=== PATIENT | male | born 1965 | race Caucasian/White ===

== ENCOUNTER 2017-06-18 06:45 | Inpatient (IN) | payer MEDICAID ==
[~2017-06-18] VITALS: Ht 165.1 cm; Wt 78.0 kg
[~2017-06-18 06:45] MED LIST: ACETAMINOPHEN325 MG PO; CLARITIN 10 MG10 MG PO; COREG25 MG PO; FERREX 150 PLUS1 CAP PO; FOLIC ACID1 MG PO; FUROSEMIDE40 MG PO; IBUPROFEN600 MG PO; LISINOPRIL10 MG PO; OMEPRAZOLE40 MG PO; PLAVIX75 MG PO; POTASSIUM CHLO10 ME1 PO; ZANTAC150 MG PO; ZOCOR40 MG PO
[2017-06-18] MEDS ORDERED: LIPITOR40 MG PO (08:39)
[2017-06-18] MEDS ORDERED: ULTRAM50 MG PO (08:39)
[2017-06-18 08:44] VITALS: BP 109/59; BMI 28.6
[2017-06-18 09:40] LABS: HEMATOCRIT 35.8 % (42.0-54.0); HEMOGLOBIN 11.8 g/dL (13.5-17.5); MCH 31.1 pg (26.0-34.0); MCV 94.5 fL (80.0-100.0); RBC 3.79 10x6/uL (4.20-6.10); RDW 12.7 % (11.5-14.5); WBC 4.7 10x3/uL (4.8-10.8)
[2017-06-18 09:46] LABS: ANION GAP 13.9 mmol/L (8-16); CARBON DIOXIDE 21.8 mmol/L (21.0-32.0); CREATININE - SERUM 1.1 mg/dL (0.6-1.3); POTASSIUM - SERUM 4.7 mmol/L (3.5-5.1)
[2017-06-18 17:42] VITALS: BP 137/76
--- NOTE | 2017-06-18 17:45 | NUR ---
TO ROOM 2222 FROM PACU. DRESSING MIDLINE CLEAN, DRY AND INTACT. LONI LMQ MINIMAL DRAINAGE. PATTERSON TO GRAVITY WITH CLEAR YELLOW URINE IN BAG. SCD'S IN PLACE. IVF AND PAIN MEDS INITIATED.ORIENTATION TO ROOM WITH GUARD WHO IS AT BEDSIDE.CALL LIGHT IN REACH
[2017-06-18 18:57] VITALS: BP 137/76; BMI 28.6
--- NOTE | 2017-06-18 20:00 | NUR ---
ASSESSMENT PER FLOWSHEET. MONITORING VITAL SIGNS, DRESSING TO ABDOMEN C/D/I WITH LONI DRAIN PATENT AND COMPRESSED. SMALL AMOUNT SEROUS DRAINAGE NOTED. IV PATENT RT ARM OF NS AT 100CC'S/HR SITE CLEAR. MAINTENANCE SUPERINTENDENT OF DILAUDID IN USE WITH SETTINGS AT 0.2MG Q10MIN WITH NO L/O. PATTERSON TO BS DRAINAGE WITH AYO COLORED URINE. O2 ON 4L/M PRT NC. NO DISTRESS HOB UP 30 DEGREES. HEAD COUNSELOR AT BEDSIDE. PT SHACKLED TO LOWER PORTIONOF BED. SR UP X2 CALL LIGHT WITHIN REACH.PT IS NPO.
--- NOTE | 2017-06-18 22:00 | NUR ---
MEDS GIVEN PER MAR. NO CHANGES IN ASSESSMENT.
[2017-06-18 23:58] VITALS: BP 127/84
--- NOTE | 2017-06-19 | NUR ---
PT STATES THAT THE SHRIMP HEADER IS NOT RELIEVING HIS PAIN. RE CHECKED PT'S SETTINGS THEY ARE CORRECT. ACCORDING TO MD'S ORDERS. WAITED WITH PATIENT TO SEE IF GREEN MED LIGHT CAME ON. AND IT DID AND WAS PRESSED FOR PAIN MED DELIVERED.
[2017-06-19 02:33] VITALS: BP 131/90
--- NOTE | 2017-06-19 03:00 | NUR ---
EYES CLOSED RESPIRATIONS WITH EASE AND UNLABORED. VITAL SIGNS STABLED.
[2017-06-19 05:14] LABS: BASOPHILS 0.1 % (0-2); EOSINOPHILS 0 % (0-7); HEMATOCRIT 37.8 % (42.0-54.0); IMMATURE GRANULOCYTES 0.3 % (0-5); LYMPHOCYTES 3.8 % (15-50); MCH 30.4 pg (26.0-34.0); MCHC 31.7 g/dL (31.0-37.0); MCV 95.7 fL (80.0-100.0); MEAN PLATELET VOLUME 11.1 fL (7.4-10.4); MONOCYTES 7.9 % (2-11); NEUTROPHILS 87.9 % (40-80); RBC 3.95 10x6/uL (4.20-6.10)
[2017-06-19 05:22] LABS: PLATELET COUNT 257 10x3/uL (130-400); WBC 12.8 10x3/uL (4.8-10.8)
[2017-06-19 05:54] LABS: ALBUMIN 3.6 g/dL (3.4-5.0); ANION GAP 19.2 mmol/L (8-16); BILIRUBIN - TOTAL 0.34 mg/dL (0.2-1.3); CALCIUM 8.3 mg/dL (8.5-10.1); CREATININE - SERUM 1.2 mg/dL (0.6-1.3); PHOSPHOROUS 6.1 mg/dL (2.5-4.9); POTASSIUM - SERUM 5.2 mmol/L (3.5-5.1); PROTEIN - SERUM 6.8 g/dL (6.4-8.2)
[2017-06-19 06:30] VITALS: BP 115/69
--- NOTE | 2017-06-19 07:15 | NUR ---
REPORT RECEIVED FROM SHIRRING MACHINE OPERATOR AUTOMATIC NURSE. CALL LIGHT IN REACH.
[2017-06-19 08:08] VITALS: BP 116/72
--- NOTE | 2017-06-19 09:07 | NUR ---
ASSESSMENT COMPLETED. SCDs TO BLE. STATES A LITTLE BIT OF GAS. ANTHROPOLOGY INSTRUCTOR IN ROOM. CALL LIGHT IN REACH. WILL CONTINUE WITH PLAN OF CARE.
--- NOTE | 2017-06-19 11:35 | NUR ---
TYLENOL IVPB ADMINISTERED PER ORDER. INCENTIVE SPIROMETER GIVEN TO PATIENT AND EXPLAINED USE WITH RETURN DEMONSTRATION. NO OTHER NEEDS VOICED. GUARD IN ROOM. CALL LIGHT IN REACH.
[2017-06-19 12:22] VITALS: BP 111/67
--- NOTE | 2017-06-19 12:34 | NUR ---
O2 WEANED TO 2L PER NC. STILL 95% AT THIS TIME. CALL LIGHT IN REACH.
--- NOTE | 2017-06-19 14:59 | NUR ---
REQUESTING ALBUTEROL INHALER FOR SHORTNESS OF BREATH. WILL ASK DR. KOEHLER FOR NEW ORDER.
[2017-06-19 16:01] VITALS: BP 127/78
--- NOTE | 2017-06-19 16:45 | NUR ---
DR. KOEHLER IN ROOM TO SEE PATIENT.
--- NOTE | 2017-06-19 17:38 | NUR ---
ICE GIVEN TO PATIENT. PEPCID 40 MG SIVP. DOCTOR OF NAPRAPATHIC MEDICINE CHANGED. HELD TYLENOL BECAUSE PATIENT HAS EXCEEDED DAILY AMOUNT. CALL LIGHT IN REACH.
--- NOTE | 2017-06-19 18:29 | NUR ---
PT RESTING WITH EYES SHUT, EASILY AROUSED. NO SIGNS OF ACUTE DISTRESS, FAMILY AT BEDSIDE.
--- NOTE | 2017-06-19 19:00 | NUR ---
REPORT RECEIVED AND CARE OF PT ASSUMED. PT LYING IN LOW OW[place]'S POSITION WATCHING TV. IV IN RIGHT WRIST PATENT WITH NS INFUSING AT 100 ML / HR. MANAGER OF CUSTOMER BILLING / DILAUDID IN USE FOR PAIN CONTROL. PATTERSON CATHETER DRAINING TO GRAVITY WITH YELLOW URINE IN COLLECTION BAG. DRESSING ON ABDOMEN CLEAN AND DRY. LONI DRAIN COMPRESSED WITH BLOODY DRAINAGE IN COLLECTION BULB. WILL MONITOR FOR NEEDS. GEAR MILLING MACHINE SET UP OPERATOR IS AT BEDSIDE.
[2017-06-19 20:00] VITALS: BP 144/78
--- NOTE | 2017-06-19 20:00 | NUR ---
PT ARRIVED ON UNIT VIA WHEELCHAIR ESCORTED BY OP NURSE. VITALS STABLE. PRBC'S INFUSING AT 125 ML / HR. ORIENTED TO ROOM AND CALL LIGHT.
--- NOTE | 2017-06-19 20:25 | NUR ---
HS MEDICAITONS GIVEN. WILL CONTINUE TO MONITOR FOR NEEDS.
[2017-06-20 00:43] VITALS: BP 130/76
[2017-06-20 04:00] VITALS: BP 133/82
--- NOTE | 2017-06-20 05:20 | NUR ---
NEW VIAL OF DILAUDID PLACED IN FOREST ENGINEER. WILL CONTINUE TO MONITOR FOR NEEDS.
--- NOTE | 2017-06-20 08:03 | NUR ---
PT AOX4 RESP EVEN AND NONLABORED PT DENIES NEEDS AT THIS TIME IV TO RIGHT WRIST PATENT AND INTACT AT THIS TIME SRX2 BED AT LOWEST SETTING CALL LIGHT WITHIN REACH WILL CONTINUE TO MONITOR
[2017-06-20 08:23] VITALS: BP 135/88
[2017-06-20 10:51] VITALS: Ht 165.1 cm; Wt 78.0 kg
[2017-06-20 12:34] VITALS: BP 126/78
[2017-06-20 16:29] VITALS: BP 128/89
--- NOTE | 2017-06-20 19:00 | NUR ---
REPORT RECEIVED AND CARE OF PT ASSUMED. PT LYING IN SEMI OWUSU'S POSITION WATCHING TV. IV RIGHT WRIST PATENT WITH NS INFUSING AT 100 ML / HR. PATTERSON CATHETER DRAINING TO GRAVITY WITH YELLOW URINE IN COLLECTION BAG. DRESSING ON ABDOMEN CLEAN AND DRY. LONI DRAIN COMPRESSED WITH BLOODY DRAINAGE IN COLLECTION BULB. WILL MONITOR FOR NEEDS. EDUCATION PROFESSIONAL AT BEDSIDE.
[2017-06-20 20:00] VITALS: BP 141/86
--- NOTE | 2017-06-20 23:26 | NUR ---
NEW VIAL OF DILAUDID PLACED IN GLASS ENAMEL MIXER. WILL CONTINUE TO MONITOR FOR NEEDS. CALL LIGHT WITHIN REACH.
[2017-06-21] VITALS: BP 124/102
--- NOTE | 2017-06-21 03:00 | NUR ---
PT RESTING QUIETLY, EYES CLOSED. RESP EVEN, UNLABORED. NO DISTRESS NOTED. CONTINUE AUTOMATION QTP TESTER'S PLAN OF CARE.
[2017-06-21 04:00] VITALS: BP 147/96
[2017-06-21 08:40] VITALS: BP 137/88
[2017-06-21 12:11] VITALS: BP 139/81
[2017-06-21 15:44] VITALS: BP 152/95
--- NOTE | 2017-06-21 16:43 | NUR ---
16 FR NG TUBE PLACED IN RIGHT NARE X1 ATTEMPT RECEIVING 300ML OF GREEN THIN LIQUID BILE. PT TOLERATED WITH LITTLE DISCOMFORT AT THIS TIME
--- NOTE | 2017-06-21 18:10 | NUR ---
BICARB LEVEL OF 19 CALLED TO HE STATED THATS FINE
[2017-06-21 21:25] VITALS: BP 147/83
[2017-06-22 00:27] VITALS: BP 140/88
--- NOTE | 2017-06-22 02:40 | NUR ---
PATIENT SLEEPING INTERMITTENTLY, GUARD AT BEDSIDE. PATIENT SHACKELED FROM THE LEFT ANKLE TO THE BED. NO NEEDS NOTED AT THIS TIME.
[2017-06-22 05:53] VITALS: BP 149/86
[2017-06-22 06:14] LABS: BASOPHILS 0.3 % (0-2); EOSINOPHILS 6.8 % (0-7); HEMATOCRIT 30.9 % (42.0-54.0); IMMATURE GRANULOCYTES 0.3 % (0-5); LYMPHOCYTES 20.9 % (15-50); MCH 30.7 pg (26.0-34.0); MCHC 32.4 g/dL (31.0-37.0); MCV 94.8 fL (80.0-100.0); MEAN PLATELET VOLUME 10.1 fL (7.4-10.4); MONOCYTES 16.8 % (2-11); NEUTROPHILS 54.9 % (40-80); RBC 3.26 10x6/uL (4.20-6.10); RDW 12.8 % (11.5-14.5); WBC 3.4 10x3/uL (4.8-10.8)
[2017-06-22 06:16] LABS: PLATELET COUNT 187 10x3/uL (130-400)
[2017-06-22 06:40] LABS: ALBUMIN 2.7 g/dL (3.4-5.0); ALKALINE PHOSPHATASE 37 U/L (46-116); ALT (SGPT) 19 U/L (10-68); CALC OSMOLALITY 292 mosm/kg (275-300); CALCIUM 8.3 mg/dL (8.5-10.1); CARBON DIOXIDE 20.5 mmol/L (21.0-32.0); CHLORIDE - SERUM 112 mmol/L (98-107); CREATININE - SERUM 0.8 mg/dL (0.6-1.3); GLUCOSE 104 mg/dL (74-106); PHOSPHOROUS 3.4 mg/dL (2.5-4.9); POTASSIUM - SERUM 3.7 mmol/L (3.5-5.1); PRO BNP 2266 pg/mL (0-125); PROTEIN - SERUM 5.4 g/dL (6.4-8.2); SODIUM 146 mmol/L (136-145); UREA NITROGEN 18 mg/dL (7-18); eGFR NON AFRICAN AMERICAN > 90 mL/min (90-120)
--- NOTE | 2017-06-22 07:53 | NUR ---
PT AOX4 RESP EVEN AND NONLABORED PT DENIES NEEDS AT THIS TIME IV TO RIGHT HAND PATENT AND INTACT AT THIS TIME SRX2 BED AT LOWEST SETTING CALL LIGHT WITHIN REACH WILL CONTINUE TO MONITOR
[2017-06-22 08:33] VITALS: BP 151/87
[2017-06-22 16:41] VITALS: BP 137/90
[2017-06-22 19:44] VITALS: BP 146/86
[2017-06-22 23:44] VITALS: BP 152/86
--- NOTE | 2017-06-23 03:00 | NUR ---
PT LAYING IN BED AWAKE. RESP EVEN, UNLABORED. DENIES NEEDS. CONTINUE BORDEREAU CLERK'S PLAN OF CARE.
[2017-06-23 04:00] VITALS: BP 144/86
[2017-06-23 05:46] LABS: BASOPHILS 0.2 % (0-2); HEMATOCRIT 30.8 % (42.0-54.0); HEMOGLOBIN 9.9 g/dL (13.5-17.5); IMMATURE GRANULOCYTES 0.6 % (0-5); LYMPHOCYTES 21.2 % (15-50); MCH 30.6 pg (26.0-34.0); MCHC 32.1 g/dL (31.0-37.0); MCV 95.1 fL (80.0-100.0); MEAN PLATELET VOLUME 10.3 fL (7.4-10.4); MONOCYTES 15.6 % (2-11); NEUTROPHILS 52.4 % (40-80); PLATELET COUNT 215 10x3/uL (130-400); RBC 3.24 10x6/uL (4.20-6.10); RDW 12.8 % (11.5-14.5)
[2017-06-23 05:49] LABS: WBC 4.7 10x3/uL (4.8-10.8)
[2017-06-23 06:18] LABS: ALBUMIN 2.7 g/dL (3.4-5.0); ALKALINE PHOSPHATASE 38 U/L (46-116); ALT (SGPT) 20 U/L (10-68); BILIRUBIN - TOTAL 0.25 mg/dL (0.2-1.3); CALC OSMOLALITY 299 mosm/kg (275-300); CALCIUM 8.3 mg/dL (8.5-10.1); CARBON DIOXIDE 23.6 mmol/L (21.0-32.0); CHLORIDE - SERUM 114 mmol/L (98-107); CREATININE - SERUM 0.8 mg/dL (0.6-1.3); GLUCOSE 136 mg/dL (74-106); MAGNESIUM - SERUM 2.1 mg/dL (1.8-2.4); POTASSIUM - SERUM 3.3 mmol/L (3.5-5.1); PROTEIN - SERUM 6.2 g/dL (6.4-8.2); SODIUM 149 mmol/L (136-145); UREA NITROGEN 17 mg/dL (7-18); eGFR NON AFRICAN AMERICAN > 90 mL/min (90-120)
--- NOTE | 2017-06-23 08:04 | NUR ---
AWAKE AND ALERT. ORIENTED X3. NO C/O AT THIS TIME. LUNGS ARE CLEAR BILATERALLY, NO COUGH NOTED. SKIN IS INTACT WITHOUT REDNESS EXCEPT MID ABDOMINAL INCISION WHICH HAS A DRY INTACT DRESSING IN PLACE. LONI TO SAME AREA IS PATENT WITH SEROUS SANGUINESS DRAINAGE NOTED. IV TO RIGHT WRIST IS PATENT WITHOUT REDNESS AT INSERTION SITE. PATTERSON PATNET WITH CLEAR YELLOW URINE. DENIES NEEDS.
[2017-06-23 08:14] VITALS: BP 137/88
--- NOTE | 2017-06-23 10:00 | NUR ---
OFF UNIT FOR CTA WITH PE PROTOCAL.
[2017-06-23 11:51] VITALS: BP 123/86
--- NOTE | 2017-06-23 13:28 | NUR ---
RETURNED FROM PROCEDURE. NO C/O AT THIS TIME.
--- NOTE | 2017-06-23 13:28 | NUR ---
CLEAR LIQUID LUNCH SERVED. DENIES NEEDS.
--- NOTE | 2017-06-23 14:31 | NUR ---
NUTRITION F/U CHART REVIEWED. PT VISIT X2. SPOKE WITH NURSING. CLEAR LIQUID>BRAEDEN PER DIET ORDER. WILL ADVANCE TO SOFT DIET AT DINNER. RD FOLLOWING
[2017-06-23 16:05] VITALS: BP 152/97
--- NOTE | 2017-06-23 18:11 | NUR ---
LEFT LONI DRAIN DC'D. SUGAR TRUCKER DC'D. DILAUDID 2 MG PO PER C/O PAIN OF 7. PEPCID IVP AND ZOSYN IVPB. CALL LIGHT IN REACH.
--- NOTE | 2017-06-23 18:52 | NUR ---
LONI D/C WITHOUT COMPLICATIONS PER ZAMUDIO LAWN AND GARDEN TECHNICIAN. FELT HAT FLANGING OPERATOR DISCONTINUED WELL. ATE REAL SOFT FOOD FOR SUPPER WITHOUT NAUSEA OR PAIN. NO CHANGES NOTED. DENIES NEEDS.
--- NOTE | 2017-06-23 20:00 | NUR ---
ASSESSMENT PER FLOWSHEET. IV PATENT RT WRIST OF D5LR SAT 75CC'S/HR SITE CLEAR GUARD AT BEDSIDE. PATTERSON TO BEDSIDE DRAINAGE WITH YELLOW URINE. SR UP X2 CALL LIGHT WITHIN REACH. DRESSING TO ABDOMINAL INCISION C/D/I.
[2017-06-23 20:21] VITALS: BP 128/95
--- NOTE | 2017-06-23 21:00 | NUR ---
RESTING AT THIS TIME.
--- NOTE | 2017-06-23 22:07 | NUR ---
C/O INCIISIONAL PAIN RATES PAIN LEVEL #5-6. DILAUDID 2MG PO TAB GIVEN FOR PAIN CONTROL.
--- NOTE | 2017-06-24 00:16 | NUR ---
EYES CLOSED RESTING QUIETLY RESPIRATIONS WITH EAS AND UNLABORED. SR UP X2 CALL LIGHT WITHIN REACH.
[2017-06-24 03:50] VITALS: BP 145/65
--- NOTE | 2017-06-24 06:00 | NUR ---
C/O ABDOMINAL PAIN WITH CRAMPING AND INCISIONAL PAIN RATES PAIN LEVEL #7. DILAUDID 2 MG PO GIVEN FOR PAIN CONTROL.
--- NOTE | 2017-06-24 07:10 | NUR ---
REPORT RECEIVED FROM HOME HEALTH SPEECH THERAPIST NURSE. CALL LIGHT IN REACH.
[2017-06-24 08:20] VITALS: BP 148/92
--- NOTE | 2017-06-24 08:50 | NUR ---
ASSESSMENT COMPLETED. SCDs TO BLE. CALL LIGHT IN REACH. GUARD IN ROOM. WILL CONTINUE WITH PLAN OF CARE.
--- NOTE | 2017-06-24 09:40 | HP ---
PATIENT: DAREK PACHECO MEDICAL RECORD: [id number] ACCOUNT: [id number] LOCATION:D.MS Read2 : 65 ADMISSION DATE: 06/21/17 HISTORY AND PHYSICAL EXAMINATION CHIEF COMPLAINT: Hernia. HISTORY OF PRESENT ILLNESS: The patient has an incisional hernia. I have performed an open antireflux procedure on the patient in the past. The patient states he still has reflux symptoms and they have been worsening, however, he does not have the volume reflux that he had the night prior to the antireflux procedure. The risks, possible complications, and alternatives to open hernia repair with mesh were explained to the patient. He elects to proceed. The discussion specifically included, but was not limited to, bleeding requiring emergency reoperation, infection, intestinal injury as well as recurrent hernia. ALLERGIES: PHENERGAN. HOME MEDICATIONS: Albuterol, aspirin, lisinopril, Zocor, tramadol, furosemide, potassium, omeprazole, loratadine. SOCIAL HISTORY: Ex-smoker for 5 years. PAST MEDICAL AND SURGICAL HISTORY: Include COPD, coronary artery disease, hypertension, congestive heart failure, history of CABG times 3, history of 2 coronary stents, gastroesophageal reflux which is controlled, left knee surgery, left leg surgery. REVIEW OF SYSTEMS: Negative for fainting or seizures. Negative for rheumatic fever. Negative for diabetes. Negative for thyroid disease. PHYSICAL EXAMINATION: GENERAL: The patient does not appear acutely ill. He does appear chronically ill. VITAL SIGNS: Reviewed. HEAD: External ears appear normal. EYES: Extraocular movements are intact. NECK: Trachea is midline. CHEST: No intercostal retractions. PULMONARY: Nonlabored, no stridor. ABDOMEN: Incisional hernia. Wide based diastasis rectus as well. EXTREMITIES: No peripheral cyanosis. IMPRESSION: Symptomatic incisional hernia, cephalad just below the xiphoid process. PLAN: Open repair with mesh. TRANSINT:[id number] Voice Confirmation ID: [id number] DOCUMENT ID: [id number] HISTORY AND PHYSICAL [id number] DAREK PACHECO ROBERT MD at 0940 CC: MARTÍNEZ LAZARO MD, JOSUE MARSH MD and NAE ANTONIO [id number] DICTATION DATE: 06/18/171706 COMMERCIAL CORRESPONDENT: 06/18/17 1733 ADM IN [facility] [address] [place] [address]
--- NOTE | 2017-06-24 09:40 | OP ---
PATIENT NAME: DAREK PACHECO MEDICAL RECORD: [id number] :65 LOCATION:D.MS [place] ADMISSION DATE:06/21/17 SURGEON: MARTÍNEZ KOEHLER MD DATE OF OPERATION: 06/18/2017 PREOPERATIVE DIAGNOSIS: Epigastric incisional hernia. POSTOPERATIVE DIAGNOSES: Large Kuwaiti cheese type of epigastric incisional hernia, enterotomies times 2. PROCEDURES: Open incarcerated incisional hernia repair with intraabdominal Ventrio ST 22.1 cm x 27.1 cm hernia patch, repair of enterotomies times 2. SURGEON: Martínez Koehler MD COLLECTIONS AND ARCHIVES DIRECTOR: None. ESTIMATED BLOOD LOSS: 200 cc. ANESTHESIA: General. COMPLICATIONS: None. OPERATIVE FINDINGS: Initially, I thought that the patient had a significant diastasis rectus and had a fairly small incisional hernia just inferior to the xiphoid process. During the dissection today, I identified that the hernia defect was quite large and within this large hernia defect, there were other smaller hernia defects. Two enterotomies occurred and were repaired. These were of the small bowel. The risks, possible complications, and alternatives to the procedure were explained to the patient. He elects to proceed. OPERATIVE COURSE: The patient was conveyed to the operating room electively on 06/18/2017. General anesthesia was induced by the anesthesia staff. The abdomen was sterilely prepped and draped. Through the use of double curvilinear incisions, I excised the skin and subcutaneous tissue overlying the hernia sac. I entered the hernia sac sharply. There were very dense adhesions. Most of these were grade III adhesions in the upper abdomen. I started taking down some of the small bowel from within the hernia defects which were numerous. There was an extensive adhesiolysis. These adhesiolysis included the stomach, the liver, as well as the small bowel. I had to extend my incision caudad several times, almost all the way to the umbilicus. During the dissection, although it was meticulous, there were areas where the bowel was really stuck up to the abdominal wall very tightly and 2 enterotomies occurred. These enterotomies were both repaired in the same fashion. Allis graspers were used to close the small bowel defects. I then stapled across the small bowel tangentially with a TA 30 stapler. I ran the small bowel from the ligament of Treitz to the ileocecal valve and then back 2 times. I noted no evidence of a residual full-thickness defect. I irrigated with normal saline and aspirated. Attenuated fascia and hernia sac was excised. In order to obtain closure that was going to be adequate, I had to excise some skin and adipose tissue in the midline as well. Subcutaneous flaps were created on either side of the widely spaced rectus sheaths. OPERATIVE REPORT [id number] DAREK PACHECO I then brought a Ventrio ST hernia patch onto the sterile field and placed it in the abdomen with the slick side toward the bowels and the rough side toward the anterior abdominal wall. On the left side, I tacked the mesh in place with SorbaFix Tacker as this was a skirted mesh. I then began to close the fascia in the midline overlying the hernia mesh. I incorporated the hernia mesh with a number of these sutures to stabilize it. The closure was of a #1 looped PDS in a horizontal mattress fashion from the cephalad and caudad directions. Care was paid to ensure that there was no interposed bowel between the mesh and the anterior abdominal wall. I then overran this fascial closure with a running #1 Vicryl. A 19-Maltese round Trevor drain was brought through a stab incision in the left lower quadrant. This was placed in the subcutaneous cavity. I then closed the subdermal structures with multiple interrupted 3-0 Vicryl sutures. The drain was sutured to skin with a 2-0 Prolene. The midline closure consisted of metallic clips. The patient was then extubated and conveyed to the post-anesthesia care unit where he was in stable condition. I anticipate he is going to have a significant ileus. He is likely going to require at least a 1-2 days stay here in the hospital for narcotic analgesia and to await recovery of bowel function. TRANSINT:[id number] Voice Confirmation ID: [id number] DOCUMENT ID: [id number] MARTÍNEZ KOEHLER MD at 0940 CC: MARTÍNEZ LAZARO MD, JOSUE MARSH MD and NAE ANTONIO [id number] DICTATION DATE: 06/18/17 1849 FASHION DESIGNER: 06/18/172205 ADM IN [facility] [id number] [place] [address]
--- NOTE | 2017-06-24 10:50 | NUR ---
AM MEDS ADMINISTERED. DILAUDID PO PER C/O ABDOMINAL PAIN OF 7. CALL LIGHT IN REACH.
[2017-06-24 11:37] VITALS: BP 137/81
--- NOTE | 2017-06-24 12:51 | NUR ---
PT SEEN. STILL COMPLAINING OF PAIN TO ABDOMEN BUT STATES IT IS BETTER 01/18. PASSING GAS AND STOOL THIS AM HE STATES. GUARD AT BEDSIDE. CALL LIGHT IN REACH
--- NOTE | 2017-06-24 14:59 | NUR ---
REQUESTING PAIN MEDS. WILL SEE IF IT IS TIME.
--- NOTE | 2017-06-24 15:19 | NUR ---
DILAUDID 2 MG PO PER C/O PAIN OF 7 TO ABD. GUARD AT BEDSIDE. CALL LIGHT IN REACH.
[2017-06-24 16:00] VITALS: BP 131/77
--- NOTE | 2017-06-24 17:30 | NUR ---
EATING SUPPER AT THIS TIME. NO NEEDS VOICED. CALL LIGHT IN REACH.
--- NOTE | 2017-06-24 18:35 | NUR ---
PEPCID AND ZOSYN IV. NO OTHER CHANGES IN INITIAL ASSESSMENT. SCDs TO BLE. CALL LIGHT IN REACH. GUARD AT BEDSIDE. WILL CONTINUE WITH PLAN OF CARE.
[2017-06-24 20:00] VITALS: BP 154/94
[2017-06-25] VITALS: BP 146/84
[2017-06-25 04:00] VITALS: BP 142/91
--- NOTE | 2017-06-25 07:55 | NUR ---
PT AOX4 RESP EVEN AND NONLABORED PT DENIES NEEDS AT THIS TIME IV TO RIGHT FOREARM PATENT AND INTACT AT THIS TIME SRX2 BED AT LOWEST SETTING CALL LIGHT WITHIN REACH WILL CONTINUE TO MONITOR
[2017-06-25 08:36] VITALS: BP 178/86
[2017-06-25 14:20] VITALS: BP 136/85
--- NOTE | 2017-06-25 15:38 | NUR ---
CM NOTE: PATIENT IS [facility] AND WILL RETURN THERE AT DISCHARGE. PATIENT SHOULD D/C TODAY BY [facility]. NURSE HAS NUMBER FOR REPORT.
[2017-06-25 16:23] VITALS: BP 142/90
--- NOTE | 2017-06-25 20:00 | NUR ---
ASSESSMENT PER FLOWSHEET. IV PATENT RT WRIST OF D5LR AT 75CC'S/HR SITE CLEAR. ABDOMINAL MIDLINE INCISION WITH ROMERO C/D/I TO AIR. ACCOUNTS PAYABLE TECHNICIAN AT BEDSIDE. SR UP X2 CALL LIGHT WITHIN REACH VOIDS WELL IN URINAL.
--- NOTE | 2017-06-25 22:14 | NUR ---
C/O INCISIONAL PAIN RATES PAIN LEVEL #5 DILAUDID 2 MG PO GIVEN FOR PAIN CONTROL.
[2017-06-25 23:09] VITALS: BP 134/88
--- NOTE | 2017-06-26 | NUR ---
EYES CLOSED RESPIRATIONS WITH EASE AND UNLABORED. TURNS SELF IN BED.
[2017-06-26 01:20] VITALS: BP 134/89
--- NOTE | 2017-06-26 03:33 | NUR ---
AWAKE ALERT REQUESTING PAIN MED FOR INCISIONAL PAIN. DILAUDID 2 MG PO GIVEN FOR PAIN CONTROL.
[2017-06-26 05:48] VITALS: BP 135/82
--- NOTE | 2017-06-26 06:00 | NUR ---
MEDS GIVEN PER MAR. RESTING QUIETLY DENIES NEEDS.
--- NOTE | 2017-06-26 07:05 | NUR ---
REPORT RECEIVED FROM HOURLY SIGN LANGUAGE INTERPRETER NURSE. CALL LIGHT IN REACH.
[2017-06-26] MEDS ORDERED: HYDROCODON-ACE1 EAC7 PO ×2 (07:58→09:50)
--- NOTE | 2017-06-26 08:42 | NUR ---
ASSESSMENT COMPLETED. DILAUDID PO FOR PAIN OF 6 TO ABDOMEN. REFUSES SCDs. IV DC'D WITH TIP INTACT. CRYPTOLOGIC TECHNICIAN IN ROOM. CALL LIGHT IN REACH. WILL CONTINUE WITH PLAN OF CARE.
[2017-06-26 09:07] VITALS: BP 110/80
--- NOTE | 2017-06-26 09:09 | NUR ---
CM REASSESSMENT NOTE: PATIENT DID NOT D/C YESTERDAY BUT WILL D/C TODAY BACK TO THE [facility]. NURSE HAS NUMBER FOR REPORT.
--- NOTE | 2017-06-26 10:05 | NUR ---
WAITING FOR NEW ORDERS FROM DR. DALLAS SO THAT PATIENT CAN GET DISCHARGED.
--- NOTE | 2017-06-26 11:25 | NUR ---
DR. DALLAS PAGED TO SEE WHAT ABX HE WANTS TO SEND PATIENT BACK ON.
--- NOTE | 2017-06-26 11:53 | NUR ---
STATES HE GOT CHOKED ON SOME FOOD AND BECAME NAUSEATED. PATIENT VOMITED ON FLOOR. NEW ORDER FOR ZOFRFUNMI ODT X1.
--- NOTE | 2017-06-26 12:01 | NUR ---
PAGED DR. DALLAS A SECOND TIME.
[2017-06-26] MEDS ORDERED: LEVAQUIN500 MG PO (12:35)
[2017-06-26] MEDS ORDERED: CLEOCIN HCL300 MG PO (12:36)
--- NOTE | 2017-06-26 13:06 | NUR ---
PT SEEN THIS AM ON MORNING ROUNDS. NO COMPLAINTS AT THIS TIME. HOPING FOR DISCHARGE TODAY. STATES IS PASSING STOOLS. GUARD AT BEDSIDE.
--- NOTE | 2017-06-26 13:12 | NUR ---
DC INSTRUCTIONS EXPLAINED TO PATIENT. VERBALIZED UNDERSTANDING. RX FOR NORCO AND PAPERWORK HANDED TO GUARD. SHANTELLE HAM.
--- NOTE | 2017-06-26 13:35 | NUR ---
DC'D TO ASSISTED VAN VIA WC WITH ASSISTED GUARDS.
--- NOTE | 2017-08-28 09:38 | DS ---
PATIENT:DAREK PACHECO :65 MEDICAL RECORD: [id number] DISCHARGE SUMMARY ADMISSION DATE: 06/21/17 DISCHARGE DATE: 06/26/17 PRINCIPAL DIAGNOSES: 1. Large Libyan cheese type of epigastric incarcerated incisional hernias. 2. Enterotomies times 2. 3. Postoperative ileus. 4. Aspiration pneumonia versus community-acquired pneumonia. 5. Metabolic encephalopathy. 6. History of cerebrovascular accident. 7. Non-Q-wave myocardial infarction. 8. Atrial fibrillation. 9. Acute blood loss anemia, not requiring transfusion. 10. Hypokalemia. PROCEDURE: 1. Open incarcerated incisional hernia repair with intra-abdominal Ventrio ST hernia patch. 2. Repair of enterotomies times 2. OTHER DIAGNOSES: Include COPD, coronary artery disease, hypertension, history of congestive heart failure, history of CABG times 3, history of 2 coronary stents, gastroesophageal reflux, left knee surgery, left leg surgery. HOSPITAL COURSE: The patient underwent the above operative procedure. Postoperatively, the patient developed an ileus requiring nasogastric tube suction. The patient had a return of bowel function. Nasogastric tube was removed. The patient was then dismissed back to the long-term facility. During the patient's hospitalization, he underwent a CTA of the chest, which was a PE protocol. It revealed no pulmonary emboli. There was right lower lobe air bronchogram suggestive of pneumonia. The patient underwent ultrasound Venous duplex study of the lower extremities, which revealed normal venous Dopplers of the lower extremities. Small bowel series revealed good transit of contrast into the proximal colon. Findings overall were not consistent with obstruction and may represent mild ileus. TRANSINT:[id number] Voice Confirmation ID: [id number] DOCUMENT ID: [id number] MARTÍNEZ KOEHLER MD at 0938 CC: BAILEY GALLO MD [id number] DICTATION DATE: 08/26/17 1155 CLINICAL DATA PROGRAMMER: 08/27/17 0219 DIS IN 06/26/17 [id number] [place] [address]
== END 2017-06-26 13:35 | DRG 329 ==
LOC: D.MS 06:45 → D.OPS 06:45 → D.MS 17:19 → OBSVTIME 17:20 → D.MS 17:20 → D.OPS 17:20 → D.MS 06-21 09:06 → D.OPS 06-21 09:06 → D.MS 06-21 09:06
PROVIDERS: Anesthesiology; Internal Medicine Pulmonary Disease; ADMIT Surgery
PROC: 0DL80ZZ Occlusion of Small Intestine, Open Approach (ICD-10-PCS; 2017-06-18)
PROC: 0WUF0JZ Supplement Abdominal Wall with Synthetic Substitute, Open Approach (ICD-10-PCS; principal; 2017-06-18 09:00)
DX: K43.2 Incisional hernia without obstruction or gangrene (principal); J96.01 Acute respiratory failure with hypoxia; J69.0 Pneumonitis due to inhalation of food and vomit; J44.1 Chronic obstructive pulmonary disease with (acute) exacerbation; J98.11 Atelectasis; K56.609 Unspecified intestinal obstruction, unspecified as to partial versus complete obstruction; E87.2 Acidosis; K66.0 Peritoneal adhesions (postprocedural) (postinfection); I25.10 Atherosclerotic heart disease of native coronary artery without angina pectoris; I10 Essential (primary) hypertension; Z95.5 Presence of coronary angioplasty implant and graft; Z95.1 Presence of aortocoronary bypass graft; R41.82 Altered mental status, unspecified; L27.0 Generalized skin eruption due to drugs and medicaments taken internally; T36.1X5A Adverse effect of cephalosporins and other beta-lactam antibiotics, initial encounter; Y92.230 Patient room in hospital as the place of occurrence of the external cause; Z87.891 Personal history of nicotine dependence; K21.9 Gastro-esophageal reflux disease without esophagitis; E87.5 Hyperkalemia; E83.39 Other disorders of phosphorus metabolism; D64.9 Anemia, unspecified; I48.91 Unspecified atrial fibrillation